=== PATIENT | male | born 1950 | race Caucasian/White ===

== ENCOUNTER 2022-10-21 16:19 | Emergency (ER) | payer OTHER, MEDICARE ==
[2022-10-21] MEDS ORDERED: Boostrix 0.5 ML (Tdap) VIAL (>/=7 yrs of age) ONE (17:25)
[2022-10-21] MEDS ORDERED: Lidocaine 1% w/Epinephrine 1:200K 30 ML VIAL ONE (18:18)
[2022-10-21] MEDS ORDERED: HYDROcodone/Acetaminophen 10/325 mg Tablet ONE (18:58)
== END 2022-10-21 20:44 | disposition home or self-care (01) ==
LOC: CSHERS 16:19
DX: S81.012A Laceration without foreign body, left knee, initial encounter (principal); S00.83XA Contusion of other part of head, initial encounter; S60.512A Abrasion of left hand, initial encounter; Z79.01 Long term (current) use of anticoagulants; I48.91 Unspecified atrial fibrillation; Z86.73 Personal history of transient ischemic attack (TIA), and cerebral infarction without residual deficits; V29.99XA Rider (driver) (passenger) of other motorcycle injured in unspecified traffic accident, initial encounter
CPT/HCPCS: 12001; 70450; 70486; 72125; 90471; 90715

== ENCOUNTER 2022-11-04 11:23 | Emergency (ER) | payer OTHER, MEDICARE ==
[2022-11-04] MEDS ORDERED: Bacitracin 1 PK ONE (12:36)
== END 2022-11-04 12:48 | disposition home or self-care (01) ==
LOC: CSHERS 11:23
DX: S81.012D Laceration without foreign body, left knee, subsequent encounter (principal); M25.062 Hemarthrosis, left knee; I48.91 Unspecified atrial fibrillation; V89.2XXD Person injured in unspecified motor-vehicle accident, traffic, subsequent encounter; Z86.73 Personal history of transient ischemic attack (TIA), and cerebral infarction without residual deficits
CPT/HCPCS: 20610

== ENCOUNTER 2022-12-02 08:03 | Outpatient (CLI) | payer MEDICARE, OTHER | END 2022-12-02 08:04 | disposition home or self-care (01) | LOC: CSHWCC 08:03 | PROVIDERS: ATTEND Nurse Practitioner Family | DX: S81.002D Unspecified open wound, left knee, subsequent encounter (principal) | CPT/HCPCS: 97605 ==

== ENCOUNTER 2022-12-09 08:46 | Outpatient (CLI) | payer MEDICARE, OTHER | END 2022-12-09 08:47 | disposition home or self-care (01) | LOC: CSHWCC 08:46 | PROVIDERS: ATTEND Nurse Practitioner Family | DX: S81.002D Unspecified open wound, left knee, subsequent encounter (principal) | CPT/HCPCS: 11042 ==

== ENCOUNTER 2022-12-20 08:00 | Outpatient (CLI) | payer MEDICARE, OTHER | END 2022-12-20 08:01 | disposition home or self-care (01) | LOC: CSHWCC 08:00 | PROVIDERS: ATTEND Nurse Practitioner Family | DX: S81.002D Unspecified open wound, left knee, subsequent encounter (principal) | CPT/HCPCS: 11042 ==

== ENCOUNTER 2023-01-03 13:02 | Outpatient (CLI) | payer MEDICARE, OTHER | END 2023-01-03 13:03 | disposition home or self-care (01) | LOC: CSHWCC 13:02 | PROVIDERS: ATTEND Nurse Practitioner Family | DX: S81.002D Unspecified open wound, left knee, subsequent encounter (principal) | CPT/HCPCS: 97139; G0463; 99212 ==